=== PATIENT | female | born 1945 | race Caucasian/White ===

== ENCOUNTER → 2023-05-08 07:45 | Outpatient (REF) | payer MEDICARE, OTHER, SELFPAY ==
[2023-05-10 18:08] LABS: Gliadin Peptide (DGP) Ab, IgA 3.19 FLU (0.00-4.99); Gliadin Peptide (DGP) Ab, IgG <0.56 FLU (0.00-4.99)
== END ==
LOC: HWLAB 07:45
PROVIDERS: ATTENDING PHYSICIAN Internal Medicine Gastroenterology; FAMILY PHYSICIAN Family Medicine
DX: K90.0 Celiac disease (principal)
CPT/HCPCS: 36415; 86258

== ENCOUNTER → 2023-05-15 08:57 | Outpatient (REF) | payer MEDICARE, OTHER, SELFPAY ==
[2023-05-15 10:55] LABS: TSH 1.97 uIU/ml (0.47-4.68)
== END ==
LOC: REG 08:57
PROVIDERS: ATTENDING PHYSICIAN Internal Medicine Endocrinology, Diabetes & Metabolism; FAMILY PHYSICIAN Family Medicine
DX: E04.1 Nontoxic single thyroid nodule (principal)
CPT/HCPCS: 36415; 84443

== ENCOUNTER → 2023-07-17 07:26 | Outpatient (REF) | payer MEDICARE, OTHER, SELFPAY ==
[2023-07-17 10:41] LABS: % Basophils 0.4 % (0-2); % Eosinophils 0.8 % (0-6); % Immature Granulocytes 0.4 % (0-0.5); % Lymphocytes 29.5 % (20.5-51.1); % Monocytes 6.6 % (1.7-9.3); % Neutrophils 62.3 % (42.2-75.2); Absolute Lymphocytes 1.4 10^3/uL (1.2-3.4); Absolute Monocytes 0.3 10^3/uL (0.1-0.6); Hematocrit 38.1 % (37.0-47.0); Hemoglobin 12.6 g/dL (12.0-16.0); Mean Corp Hgb Conc. 33.1 g/dL (33.0-37.0); Mean Corpuscular Hgb 31.7 pg (27.0-31.0); Mean Platelet Volume 9.8 fL (7.4-10.4); Nucleated Red Blood Cells % 0 %; Platelet Count 211 10^3/uL (130-400); Red Blood Cell Count 3.97 10^6/uL (4.20-5.40); Red Cell Dist. Width 12.3 % (11.5-14.5); White Blood Cell Count 4.9 10^3/uL (4.8-10.8)
[2023-07-17 11:39] LABS: ALT (SGPT) 25 U/L (0-35); AST (SGOT) 28 U/L (14-36); Albumin 4.4 g/dl (3.5-5.0); Alkaline Phosphatase 63 U/L (38-126); Blood Urea Nitrogen 23 mg/dl (7-17); Calcium 9.8 mg/dl (8.4-10.2); Carbon Dioxide 25 mmol/L (22-30); Chloride 102 mmol/L (98-107); Glucose 107 mg/dl (70-99); HDL Cholesterol 75 mg/dl; LDL Cholesterol, Calculated 80 mg/dl; Potassium 4.2 mmol/L (3.5-5.1); Sodium 137 mmol/L (135-145); Total Cholesterol 173 mg/dl (50-199); Total Protein 7.1 g/dl (6.3-8.2); Triglyceride 94 mg/dl (10-149); Very Low Density Lipoprotein 18 mg/dl (0-30); eGFR > 60.00
[2023-07-17 11:47] LABS: Total Bilirubin 1.3 mg/dl (0.2-1.3)
[2023-07-17 12:09] LABS: TSH 2.09 uIU/ml (0.47-4.68)
[2023-07-17 12:19] LABS: Glycohemoglobin (HgbA1c) 5.9 % (4.0-5.6)
[2023-07-17 12:28] LABS: Vitamin B12 816 pg/ml (239-931)
== END ==
LOC: HWLAB 07:26
PROVIDERS: ATTENDING PHYSICIAN Family Medicine
DX: Z00.00 Encounter for general adult medical examination without abnormal findings (principal); K90.0 Celiac disease; E78.2 Mixed hyperlipidemia; I10 Essential (primary) hypertension; R73.03 Prediabetes; E53.8 Deficiency of other specified B group vitamins; Z79.899 Other long term (current) drug therapy
CPT/HCPCS: 36415; 80053; 80061; 82607; 83036; 84443; 85025

== ENCOUNTER → 2023-11-24 07:56 | Outpatient (REF) | payer MEDICARE, OTHER, SELFPAY ==
[2023-11-24 10:10] LABS: Blood Urea Nitrogen 18 mg/dl (7-17); Calcium 9.7 mg/dl (8.4-10.2); Carbon Dioxide 27 mmol/L (22-30); Chloride 103 mmol/L (98-107); Glucose 106 mg/dl (70-99); Potassium 4.2 mmol/L (3.5-5.1); Sodium 142 mmol/L (135-145); eGFR > 60.00
[2023-11-24 11:43] LABS: C-Reactive Protein < 5.00 mg/L (0.0-10.00)
[2023-11-24 11:45] LABS: Erythrocyte Sed Rate 14 mm/hour (0-20)
[2023-11-24 12:02] LABS: Vitamin D, 25-OH*** 45.2 ng/mL (30-80)
[2023-11-24 12:51] LABS: Folate > 20.0 ng/ml (2.76-20); Vitamin B12 > 1000 pg/ml (239-931)
[2023-11-24 14:45] LABS: Lyme Antibody Screen, EIA Negative (Negative)
[2023-11-25 14:52] LABS: Angiotensin-1-converting Enzym 25 U/L (16-85)
[2023-11-26 07:05] LABS: SSA 52 (Ro)(ENA) Ab, IgG 5 AU/mL (0-40); SSA 60 (Ro)(ENA) Ab, IgG 0 AU/mL (0-40); SSB (La)(ENA) Ab, IgG 0 AU/mL (0-40)
[2023-11-27 09:31] LABS: Alpha 1 Globulin 0.29 g/dL (0.19-0.46); Alpha 2 Globulin 0.69 g/dL (0.48-1.05); SPEP IFE Reflex Not Done
== END ==
LOC: REG 07:56
PROVIDERS: ATTENDING PHYSICIAN Psychiatry & Neurology Neurology; FAMILY PHYSICIAN Family Medicine
DX: G24.4 Idiopathic orofacial dystonia (principal); I10 Essential (primary) hypertension; K80.50 Calculus of bile duct without cholangitis or cholecystitis without obstruction
CPT/HCPCS: 80048; 82164; 82306; 82607; 82746; 84155; 84165; 84425; 84443; 85652; 86140; 86235; 86618

== ENCOUNTER → 2023-12-22 09:55 | Outpatient (REF) | payer MEDICARE, OTHER, SELFPAY | LOC: MRI 09:55 | PROVIDERS: ATTENDING PHYSICIAN Psychiatry & Neurology Neurology; FAMILY PHYSICIAN Family Medicine | DX: G24.4 Idiopathic orofacial dystonia (principal) | CPT/HCPCS: 70553; A9575 ==

== ENCOUNTER → 2024-02-02 07:31 | Outpatient (REF) | payer MEDICARE, OTHER, SELFPAY ==
[2024-02-02 08:47] LABS: % Basophils 0.2 % (0-2); % Eosinophils 1.5 % (0-6); % Immature Granulocytes 0.4 % (0-0.5); % Lymphocytes 25.7 % (20.5-51.1); % Monocytes 6.5 % (1.7-9.3); % Neutrophils 65.7 % (42.2-75.2); Absolute Eosinophils 0.1 10^3/uL (0-0.7); Absolute Lymphocytes 1.4 10^3/uL (1.2-3.4); Absolute Monocytes 0.4 10^3/uL (0.1-0.6); Absolute Neutrophils 3.5 10^3/uL (1.4-6.5); Hematocrit 38.4 % (37.0-47.0); Hemoglobin 12.8 g/dL (12.0-16.0); Mean Corp Hgb Conc. 33.3 g/dL (33.0-37.0); Mean Platelet Volume 9.2 fL (7.4-10.4); Nucleated Red Blood Cells % 0 %; Platelet Count 256 10^3/uL (130-400); Red Cell Dist. Width 12.1 % (11.5-14.5); White Blood Cell Count 5.4 10^3/uL (4.8-10.8)
[2024-02-02 09:21] LABS: ALT (SGPT) 23 U/L (0-35); AST (SGOT) 25 U/L (14-36); Albumin 4.4 g/dl (3.5-5.0); Alkaline Phosphatase 62 U/L (38-126); Blood Urea Nitrogen 20 mg/dl (7-17); Calcium 9.5 mg/dl (8.4-10.2); Carbon Dioxide 27 mmol/L (22-30); Chloride 103 mmol/L (98-107); Glucose 103 mg/dl (70-99); Iron 105 ug/dl (37-170); Magnesium 2.1 mg/dl (1.6-2.3); Potassium 4.4 mmol/L (3.5-5.1); Sodium 141 mmol/L (135-145); Total Bilirubin 0.9 mg/dl (0.2-1.3); eGFR > 60.00
[2024-02-02 09:27] LABS: IgA 204 mg/dl (70-400)
[2024-02-02 09:30] LABS: Percent Saturation 29 % (20-50); Total Iron Binding Capacity 360 ug/dl (265-497)
[2024-02-03 23:41] LABS: Endomysial IgA Antibody Titer <1:10 (<1:10)
[2024-02-04 07:28] LABS: Copper, Serum 135.6 ug/dL (80.0-155.0); Zinc 74.9 ug/dL (60.0-120.0)
[2024-02-04 09:42] LABS: Gliadin Peptide (DGP) Ab, IgA 3.63 FLU (0.00-4.99); Gliadin Peptide (DGP) Ab, IgG <0.56 FLU (0.00-4.99)
[2024-02-04 15:10] LABS: tTG IgA Antibody 21.5 EU/ml (0-19); tTG IgG Antibody 10.7 EU/ml (0-19)
== END ==
LOC: REG 07:31
PROVIDERS: ATTENDING PHYSICIAN Family Medicine; FAMILY PHYSICIAN Family Medicine
DX: E60 Dietary zinc deficiency (principal); K90.0 Celiac disease
CPT/HCPCS: 36415; 80053; 82525; 82784; 83516; 83540; 83550; 83735; 84630; 85025; 86231; 86258

== ENCOUNTER → 2024-03-22 07:58 | Outpatient (REF) | payer MEDICARE, OTHER, SELFPAY ==
[2024-03-22 09:21] LABS: Urine Albumin Trace (Neg - Trace); Urine Bilirubin Negative (Negative); Urine Character Very Cloudy (Clear); Urine Color Yellow; Urine Glucose Negative (Negative); Urine Ketone Negative (Negative); Urine Leukocyte 2+ (Negative); Urine Nitrite Positive (Negative); Urine Occult Blood Trace (Negative); Urine Urobilinogen Negative (Neg - 1+)
[2024-03-22 09:29] LABS: Urine Bacteria Moderate (Negative); Urine Squamous Cell 0-2 /LPF (Few)
[2024-03-22 09:30] LABS: Urine Red Blood Cell 0-2 /HPF (0-2); Urine White Cell 26-30 /HPF (0-5)
== END ==
LOC: REG 07:58
PROVIDERS: ATTENDING PHYSICIAN Obstetrics & Gynecology; FAMILY PHYSICIAN Family Medicine
DX: R30.0 Dysuria (principal)
CPT/HCPCS: 81003; 81015; 87077; 87086; 87186

== ENCOUNTER → 2024-04-26 06:18 | Outpatient (REF) | payer MEDICARE, OTHER, SELFPAY | LOC: RAD 06:18 | PROVIDERS: ATTENDING PHYSICIAN Urology; FAMILY PHYSICIAN Family Medicine; REFERRING PHYSICIAN Specialist | DX: N39.0 Urinary tract infection, site not specified (principal) | CPT/HCPCS: 76770 ==

== ENCOUNTER → 2024-08-16 16:33 | Outpatient (REF) | payer MEDICARE, OTHER, SELFPAY | LOC: REG 16:33 | PROVIDERS: ATTENDING PHYSICIAN Specialist; FAMILY PHYSICIAN Family Medicine | DX: N39.0 Urinary tract infection, site not specified (principal) | CPT/HCPCS: 87086 ==

== ENCOUNTER → 2024-09-29 08:20 | Outpatient (REF) | payer MEDICARE, OTHER, SELFPAY ==
[2024-09-29 09:01] LABS: Hematocrit 39.4 % (37.0-47.0); Hemoglobin 13.0 g/dL (12.0-16.0); Mean Corp Hgb Conc. 33.0 g/dL (33.0-37.0); Mean Corpuscular Volume 94.9 fL (81.0-99.0); Nucleated Red Blood Cells % 0 %; Platelet Count 237 10^3/uL (130-400); Red Cell Dist. Width 12.5 % (11.5-14.5)
[2024-09-29 09:40] LABS: Blood Urea Nitrogen 19 mg/dl (7-17); Calcium 9.7 mg/dl (8.4-10.2); Carbon Dioxide 26 mmol/L (22-30); Chloride 107 mmol/L (98-107); Glucose 103 mg/dl (70-99); Potassium 4.3 mmol/L (3.5-5.1); Sodium 140 mmol/L (135-145); eGFR > 60.00
[2024-09-29 10:07] LABS: Glycohemoglobin (HgbA1c) 5.7 % (4.0-5.6)
[2024-10-01 08:30] LABS: Copper, Serum 134.0 ug/dL (80.0-155.0)
== END ==
LOC: REG 08:20
PROVIDERS: ATTENDING PHYSICIAN Family Medicine; FAMILY PHYSICIAN Family Medicine
DX: E60 Dietary zinc deficiency (principal); R73.09 Other abnormal glucose
CPT/HCPCS: 36415; 80048; 82525; 83036; 83525; 84630; 85025

== ENCOUNTER → 2025-01-24 08:09 | Outpatient (REF) | payer MEDICARE, OTHER, SELFPAY | LOC: HWRAD 08:09 | PROVIDERS: ATTENDING PHYSICIAN Obstetrics & Gynecology; FAMILY PHYSICIAN Family Medicine; REFERRING PHYSICIAN Family Medicine | DX: Z12.31 Encounter for screening mammogram for malignant neoplasm of breast (principal); M81.0 Age-related osteoporosis without current pathological fracture | CPT/HCPCS: 77063; 77067; 77080 ==

== ENCOUNTER → 2025-01-31 08:49 | Outpatient (REF) | payer MEDICARE, OTHER, SELFPAY | LOC: CLAB 08:49 | PROVIDERS: ATTENDING PHYSICIAN Specialist | DX: N39.0 Urinary tract infection, site not specified (principal) | CPT/HCPCS: 87086 ==

== ENCOUNTER → 2025-02-03 07:05 | Outpatient (REF) | payer MEDICARE, OTHER, SELFPAY ==
[2025-02-03 10:30] LABS: Hematocrit 41.4 % (37.0-47.0); Hemoglobin 13.5 g/dL (12.0-16.0); Mean Corp Hgb Conc. 32.6 g/dL (33.0-37.0); Mean Corpuscular Volume 98.3 fL (81.0-99.0); Nucleated Red Blood Cells % 0 %; Platelet Count 250 10^3/uL (130-400); Red Cell Dist. Width 12.6 % (11.5-14.5)
[2025-02-03 10:43] LABS: Glycohemoglobin (HgbA1c) 5.6 % (4.0-5.9)
[2025-02-03 11:31] LABS: TSH 2.27 uIU/ml (0.47-4.68)
[2025-02-03 12:23] LABS: ALT (SGPT) 23 U/L (0-35); AST (SGOT) 24 U/L (14-36); Albumin 4.6 g/dl (3.5-5.0); Alkaline Phosphatase 57 U/L (38-126); Blood Urea Nitrogen 19 mg/dl (7-17); Calcium 9.6 mg/dl (8.4-10.2); Carbon Dioxide 28 mmol/L (22-30); Chloride 103 mmol/L (98-107); Glucose 108 mg/dl (70-99); HDL Cholesterol 79 mg/dl; LDL Cholesterol, Calculated 98 mg/dl; Potassium 4.1 mmol/L (3.5-5.1); Sodium 139 mmol/L (135-145); Total Protein 7.3 g/dl (6.3-8.2); Very Low Density Lipoprotein 11 mg/dl (0-30); eGFR > 60.00
== END ==
LOC: HWLAB 07:05
PROVIDERS: ATTENDING PHYSICIAN Family Medicine
DX: E78.2 Mixed hyperlipidemia (principal); I10 Essential (primary) hypertension; R73.03 Prediabetes
CPT/HCPCS: 36415; 80053; 80061; 83036; 84443; 85025

== ENCOUNTER → 2025-03-21 08:23 | Outpatient (REF) | payer MEDICARE, OTHER, SELFPAY ==
[2025-03-21 10:28] LABS: Glycohemoglobin (HgbA1c) 5.6 % (4.0-5.9)
[2025-03-21 10:44] LABS: Glucose 102 mg/dl (70-99)
[2025-03-21 13:17] LABS: Vitamin D, 25-OH*** 49.6 ng/mL (30-80)
[2025-03-22 17:44] LABS: Alk Phos Bone Specific Results 10.4 ug/L
[2025-03-22 20:51] LABS: CTx 419 pg/mL
[2025-03-23 00:11] LABS: Gliadin Peptide (DGP) Ab, IgA 2.81 FLU (0.00-4.99); Gliadin Peptide (DGP) Ab, IgG <0.56 FLU (0.00-4.99)
[2025-03-23 11:23] LABS: tTG IgA Antibody 23.8 EU/ml (0-19); tTG IgG Antibody 18.7 EU/ml (0-19)
== END ==
LOC: REG 08:23
PROVIDERS: ATTENDING PHYSICIAN Family Medicine; FAMILY PHYSICIAN Family Medicine
DX: K90.0 Celiac disease (principal); M85.89 Other specified disorders of bone density and structure, multiple sites; R73.09 Other abnormal glucose
CPT/HCPCS: 36415; 82306; 82523; 82784; 82947; 83036; 83516; 83525; 84075; 86231; 86258